=== PATIENT | male | born 1965 | race Caucasian/White ===

== ENCOUNTER → 2017-02-15 | Outpatient (CLI) | payer OTHER ==
--- NOTE | 2017-02-15 13:36 | DI ---
Indication:ITS.REASON: DIAGNOSTIC TESTING Procedure:UPPER GI W/ CONTR. X2 UPPER GI WITH AIR CONTRAST: Technique:After ingesting air crystals, the patient swallowed thick and thin barium without difficulty. Fluoroscopic imaging was obtained in the upright LPO, supine AP, LPO, RPO, and right lateral positions. Findings: Esophagus: The esophagus is negative. Esophageal motility appears normal. The cricopharyngeus muscle relaxes completely. There is no Zenker's diverticulum. No gastroesophageal reflux or sliding esophageal hiatal hernia is visualized during today's study. Stomach: The stomach is negative. It is normal in contour and appearance. The mucosal fold patterns appear normal. There is no obvious ulcer. There is no filling defect to suggest a mass. Duodenum: The duodenum is negative. The mucosal fold patterns appear normal. There is no obvious ulcer. There is no filling defect to suggest a mass. The duodenal sweep crosses midline in a normal fashion. There is no malrotation or obstruction of the visualized portions of the small bowel. Incidentally noted are cholecystectomy clips. Impression:Negative upper GI with air contrast. Fluoroscopy dose: 95.70 mGy (Cumulative air kerma) Russel Lazcano RPA/REBECCA performed this under my direct supervision. .
== END ==
LOC: IMA 09:19
DX: Z02.89 Encounter for other administrative examinations (principal)